=== PATIENT | female | born 1975 | race Caucasian/White ===

== ENCOUNTER 2021-10-01 14:50 | Outpatient (CLI) | payer OTHER ==
[2021-10-01 18:14] LABS: Bilirubin Neg (Negative); Blood, Urine Negative (Negative); Clarity Clear (Clear); Glucose, Urine (Dipstick) Normal (Negative); Ketone, Urine Negative (Negative); Leukocyte 25 (Negative); Nitrite Negative (Negative); Protein, Urine (Dipstick) Negative (Neg-Trace); Urobilinogen Normal mg/dL (Less than 2)
[2021-10-01 18:18] LABS: Hemoglobin 13.2 g/dL (12.0-15.5); Mean Corpuscular HGB CONC 32.5 g/dL (32.0-36.0); Mean Corpuscular Hemoglobin 29.5 pg (27.0-33.0); Mean Corpuscular Volume 90.6 fl (81.6-98.3); Mean Platelet Volume 10.9 fl (7.4-10.4); Platelet Count 294 10x3/uL (150-450); Red Blood Cell (RBC) Count 4.48 10x6/uL (3.90-5.03); White Blood Cell (WBC) Count 8.3 10x3/uL (3.5-10.5)
[2021-10-01 18:32] LABS: BHCG - Serum Negative (NEGATIVE); Pregs Control Background? CLEAR/WHITE (CLR/WHITE); Pregs Control Bar Appear? YES (CONTROL BAR)
[2021-10-02 00:49] LABS: SARS-CoV-2 PCR by NAA Not Detected (NotDetected)
== END 2021-10-01 14:51 | disposition home or self-care (01) ==
LOC: CSHLAB 14:50
PROVIDERS: ATTEND Obstetrics & Gynecology
DX: Z01.812 Encounter for preprocedural laboratory examination (principal); Z20.822 Contact with and (suspected) exposure to COVID-19; N85.2 Hypertrophy of uterus; R10.2 Pelvic and perineal pain
CPT/HCPCS: 81003; 84703; 85027; U0003; U0005

== ENCOUNTER 2021-10-04 05:26 | Day surgery (SDC) | payer OTHER ==
[2021-10-02 11:37] VITALS: BMI 20.5
[2021-10-04] MEDS ORDERED: Bupivacaine PF 0.5% 30 ML VIAL ONE (06:13)
[2021-10-04] MEDS ORDERED: EPINEPHrine 1 MG/ML AMP ONE (06:13)
[2021-10-04] MEDS ORDERED: Lidocaine 1% MPF 2 ML VIAL ONE (06:29)
[2021-10-04] MEDS ORDERED: Fentanyl 100 MCG/2 ML VIAL ONE ×3 (06:45→10:45)
[2021-10-04] MEDS ORDERED: PROPOFOL 20 ML ONE (06:45)
[2021-10-04] MEDS ORDERED: Lidocaine 1% PF 5 ML VIAL ONE (06:46)
[2021-10-04] MEDS ORDERED: Ondansetron PF 4 MG/2 ML Vial ONE (06:46)
[2021-10-04] MEDS ORDERED: Glycopyrrolate 0.2 MG/ML 5 ML SYRINGE ONE (06:46)
[2021-10-04] MEDS ORDERED: Rocuronium Bromide 10 MG/ML (10ML VIAL) ONE (06:46)
[2021-10-04] MEDS ORDERED: Dexamethasone 20 MG/5 ML VIAL ONE (06:46)
[2021-10-04] MEDS ORDERED: Midazolam HCl 2 mg/2 ml Vial ONE (06:54)
[2021-10-04] MEDS ORDERED: Scopolamine 1.5 mg/72 hour Patch ONE (06:55)
[2021-10-04] MEDS ORDERED: ceFAZolin 2 GM/Dextrose 50 ML IVPB ONE (06:58)
[2021-10-04] MEDS ORDERED: Famotidine/PF 20 mg/2ml Vial ONE (07:01)
[2021-10-04] MEDS ORDERED: Ketorolac Tromethamine 30 MG/ML VIAL ONE ×2 (07:04→13:39)
[2021-10-04 11:44] LABS: Hemoglobin 12.2 g/dL (12.0-15.5); Mean Corpuscular HGB CONC 34.4 g/dL (32.0-36.0); Mean Corpuscular Hemoglobin 29.5 pg (27.0-33.0); Mean Corpuscular Volume 85.7 fl (81.6-98.3); Mean Platelet Volume 9.9 fl (7.4-10.4); Platelet Count 241 10x3/uL (150-450); RBC Distribution Width 13.1 % (11.5-14.5); Red Blood Cell (RBC) Count 4.14 10x6/uL (3.90-5.03); White Blood Cell (WBC) Count 13.5 10x3/uL (3.5-10.5)
== END 2021-10-04 14:10 | disposition home or self-care (01) ==
LOC: CSHSDC 05:26
PROVIDERS: ATTEND Obstetrics & Gynecology
PROC: 8E0W8CZ Robotic Assisted Procedure of Trunk Region, Via Natural or Artificial Opening Endoscopic (ICD-10-PCS; principal; 2021-10-04)
PROC: 0UT74ZZ Resection of Bilateral Fallopian Tubes, Percutaneous Endoscopic Approach (ICD-10-PCS; principal; 2021-10-04)
PROC: 0UB14ZZ Excision of Left Ovary, Percutaneous Endoscopic Approach (ICD-10-PCS; principal; 2021-10-04)
PROC: 0UT94ZZ Resection of Uterus, Percutaneous Endoscopic Approach (ICD-10-PCS; principal; 2021-10-04)
DX: N80.0 Endometriosis of uterus (principal); N83.292 Other ovarian cyst, left side; N87.9 Dysplasia of cervix uteri, unspecified; N72 Inflammatory disease of cervix uteri; N83.8 Other noninflammatory disorders of ovary, fallopian tube and broad ligament; N80.3 Endometriosis of pelvic peritoneum; K66.0 Peritoneal adhesions (postprocedural) (postinfection); N94.5 Secondary dysmenorrhea; Z79.3 Long term (current) use of hormonal contraceptives
CPT/HCPCS: 85027; 88305; 88307; C1776; J0171; J0690; J1100; J1885; J2250; J2405; J2704; J3010; Q9968; S0020; S0028

== ENCOUNTER 2021-12-09 07:53 | Outpatient (CLI) | payer OTHER | END 2021-12-09 07:54 | disposition home or self-care (01) | LOC: CSHMAMMO 07:53 | PROVIDERS: ATTEND Obstetrics & Gynecology | DX: Z12.31 Encounter for screening mammogram for malignant neoplasm of breast (principal) | CPT/HCPCS: 77063; 77067 ==

== ENCOUNTER 2023-12-15 08:09 | Outpatient (CLI) | payer OTHER | END 2023-12-15 08:10 | disposition home or self-care (01) | LOC: CSHMAMMO 08:09 | PROVIDERS: ATTEND Obstetrics & Gynecology | DX: Z12.31 Encounter for screening mammogram for malignant neoplasm of breast (principal) | CPT/HCPCS: 77063; 77067 ==

== ENCOUNTER 2024-12-21 08:34 | Outpatient (CLI) | payer OTHER | END 2024-12-21 08:35 | disposition home or self-care (01) | LOC: CSHMAMMO 08:34 | PROVIDERS: ATTEND Obstetrics & Gynecology | DX: Z12.31 Encounter for screening mammogram for malignant neoplasm of breast (principal) | CPT/HCPCS: 77063; 77067 ==